=== PATIENT | female | born 1995 | race African-American/Black ===

== ENCOUNTER 2016-06-18 07:47 | Emergency (ER) | payer SELFPAY ==
[~2016-06-18] VITALS: Ht 160 cm; Wt 61.0 kg
[2016-06-18 07:48] VITALS: BP 142/65; PULSE 60; RESP 17; TEMP 98.2; O2SAT 98
--- NOTE | 2016-06-18 08:35 | PD ---
HPI Chief Complaint: Related Problem Time Seen by Provider: 08:02 Travel History International Travel<30 days: No Contact w/Intl Traveler<30days: No Traveled to known affect area: No History of Present Illness HPI Patient is a 21-year-old at approximately 4 weeks 4 days based on LMP of here with complaint of and vaginal bleeding. Patient states that her period was 5 days late, she took 6 home test all of which were positive. This morning she began to bleed vaginally, describes this as bright red blood. Notes pain in the lower abdomen and low back, moderate, cramping. Patient has had one previous first trimester miscarriage, is concerned as this feels similar. PFSH Past Medical History Medical History: Denies Significant Hx Immunizations Current: Yes ?: LMP: 05/17/16 : 2 Para: 1 Past Surgical History Surgical History: No Previous Surgery Social History Alcohol Use: No Tobacco Use: Yes Substance Use: Yes (marijuana) Allergies-Medications (Allergen,Severity, Reaction): Coded Allergies: Mushroom (Verified Allergy, Severe, HIVES, 03/30/15) PEANUTS (Verified Allergy, Severe, THROAT CLOSES, 03/30/15) Latex (Verified Adverse Reaction, Mild, RASH, 03/30/15) Reported Meds & Prescriptions Reported Meds & Active Scripts Active Active Prescriptions or Reported Medications Unobtainable Review of Systems Except as stated in HPI: all other systems reviewed are Neg Physical Exam Narrative GENERAL: Well-appearing female in no acute distress SKIN: Warm and dry. HEAD: Normocephalic. EYES: No scleral icterus. No injection or drainage. ENT: Mucous membranes pink and moist. NECK: Supple CARDIOVASCULAR: Regular rate and rhythm. RESPIRATORY: No accessory muscle use. GASTROINTESTINAL: Abdomen soft, non-tender, nondistended. MUSCULOSKELETAL: Normal gait NEUROLOGICAL: Awake and alert. Normal speech. PSYCHIATRIC: Appropriate mood and affect; insight and judgment normal. Data Data Last Documented VS Vital Signs Date Time Temp Pulse Resp B/P Pulse Ox O2 Delivery O2 Flow Rate FiO2 06/18/16 08:20 16 06/18/16 07:48 98.2 60 142/65 98 Orders Ed Urine Pregnancytest Poc (06/18/16 08:02) Ed Poc Ultrasound (06/18/16 ) Cath For Specimen (3/14/17 08:12) [facility] Medical Decision Making Medical Screen Exam Complete: Yes Emergency Medical Condition: Yes Medical Record Reviewed: Yes Differential Diagnosis 21-year-old at approximate 4 weeks 4 days gestational age here with complaint of vaginal bleeding and abdominal pain. Differential includes , ectopic , threatened AB, missed AB, inevitable AB, complete AB. Less likely UTI. Narrative Course Patient placed on monitor, bedside ultrasound performed, showing no evidence of IUP, please see procedure note. Urine test was negative. Given her multiple positive home test my suspicion is that patient has had a complete miscarriage. Patient was informed of same and discharged home. She is A+ and does not warrant program. Procedures Procedure Narrative Emergency Department Pelvic ultrasound was performed with patient consent. The curvilinear probe was used in the transverse and sagittal views within the suprapubic region revealing no evidence of intrauterine Diagnosis Primary Impression: Complete Referrals: Primary Care Physician as needed Additional Instructions: Tylenol, ibuprofen, Aleve as needed for pain. Follow-up with [facility] if bleeding persist and return to the ER for the warning signs discussed. Med/Other Pt SpecificInfo: No Change to Meds Scripts Unable to Obtain Active Prescriptions or Reported Meds Disposition: 01 DISCHARGE HOME Condition: Stable Terra Hernandez MD Jun 18, 2016 08:35
== END 2016-06-18 09:01 | disposition home or self-care (01) ==
LOC: NEPE 07:47
DX: O03.9 Complete or unspecified spontaneous abortion without complication (principal)
CPT/HCPCS: 84703; 99283; P9612

== ENCOUNTER 2017-01-11 14:49 | Emergency (ER) | payer SELFPAY ==
[~2017-01-11] VITALS: Ht 160 cm; Wt 62.0 kg
[2017-01-11 14:50] VITALS: BP 143/62; PULSE 73; RESP 16; TEMP 99; O2SAT 99
[2017-01-11] MEDS ORDERED: SODIUM CHLOR 0.9% 1000 ML INJ 1,000 ML IV SCH (16:16)
--- NOTE | 2017-01-11 16:20 | PD ---
HPI Chief Complaint: Musculoskeletal Complaint Time Seen by Provider: 16:10 Travel History International Travel<30 days: No Contact w/Intl Traveler<30days: No Traveled to known affect area: No History of Present Illness HPI This patient was examined in the presence of female nurse at all times. 22-year -old female presents for evaluation of right upper quadrant abdominal pain/ flank pain. Symptoms started yesterday at noon while she was drinking beer. She took a Vicodin and Lortab and then "went out drinking" and when she woke up this morning her pain is worse which prompted evaluation. The pain is a constant aching pain which is worse when lying down flat, no alleviating factors. She endorses some nausea. Denies vomiting, chest pain, shortness of breath, unusual vaginal discharge, dysuria, increased urinary frequency, hematuria. She reports that her last menstrual period completed yesterday. No other complaints at this time. PFSH Past Medical History Medical History: Denies Significant Hx Immunizations Current: Yes ?: Not LMP: 01/06/17 : 2 Para: 1 Past Surgical History Other Surgery: Yes () Social History Alcohol Use: Yes Tobacco Use: No Substance Use: Yes (marijuana) Allergies-Medications (Allergen,Severity, Reaction): Coded Allergies: mushroom (Unverified Allergy, Severe, HIVES, 11/19/16) peanut (Unverified Allergy, Severe, THROAT CLOSES, 11/19/16) latex (Unverified Adverse Reaction, Mild, RASH, 11/19/16) Reported Meds & Prescriptions Reported Meds & Active Scripts Active Zofran (Ondansetron HCl) 4 Mg Tab 4 Mg PO Q6HR PRN Bactrim DS (Sulfamethoxazole-Trimethoprim) 800-160 Mg Tab 1 Tab PO BID Review of Systems Except as stated in HPI: all other systems reviewed are Neg Physical Exam Narrative GENERAL: Well-nourished female in no acute distress SKIN: Warm and dry. HEAD: Atraumatic. Normocephalic. EYES: Pupils equal and round. No scleral icterus. No injection or drainage. ENT: No nasal bleeding or discharge. Mucous membranes pink and moist. NECK: Trachea midline. No JVD. CARDIOVASCULAR: Regular rate and rhythm. No murmur appreciated. RESPIRATORY: No accessory muscle use. Clear to auscultation. Breath sounds equal bilaterally. GASTROINTESTINAL: Abdomen soft, focal right upper quadrant/right CVA tenderness without guarding. MUSCULOSKELETAL: No obvious deformities. No edema. NEUROLOGICAL: Awake and alert. No obvious cranial nerve deficits. Motor grossly within normal limits. Normal speech. PSYCHIATRIC: Appropriate mood and affect; insight and judgment normal. Data Data Last Documented VS Vital Signs Date Time Temp Pulse Resp B/P (MAP) Pulse Ox O2 Delivery O2 Flow Rate FiO2 01/11/17 16:07 18 01/11/17 14:50 99.0 73 143/62 (89) 99 Orders Orders Complete Blood Count With Diff (01/11/17 16:16) Lipase (01/11/17 16:16) Urinalysis - C+S If Indicated (01/11/17 16:16) Us Abdomen Gallbladder (01/11/17 ) Ondansetron Inj (Zofran Inj) (01/11/17 16:30) Sodium Chlor 0.9% 1000 Ml Inj (Ns 1000 M (01/11/17 16:16) Chest, Single Ap (01/11/17 16:16) Morphine Inj (Morphine Inj) (01/11/17 16:30) Ed Urine Pregnancytest Poc (01/11/17 16:16) Comprehensive Metabolic Panel (01/11/17 16:16) Urine Culture (01/11/17 16:21) Sulfamet-Trimeth Ds 800-160 Mg (Bactrim (01/11/17 17:15) Labs Laboratory Tests Test 01/11/17 16:21 White Blood Count 9.1 TH/MM3 Red Blood Count 4.21 MIL/MM3 Hemoglobin 13.0 GM/DL Hematocrit 37.8 % Mean Corpuscular Volume 89.8 FL Mean Corpuscular Hemoglobin 30.9 PG Mean Corpuscular Hemoglobin Concent 34.4 % Red Cell Distribution Width 13.6 % Platelet Count 182 TH/MM3 Mean Platelet Volume 8.9 FL Neutrophils (%) (Auto) 65.1 % Lymphocytes (%) (Auto) 20.9 % Monocytes (%) (Auto) 12.1 % Eosinophils (%) (Auto) 1.5 % Basophils (%) (Auto) 0.4 % Neutrophils # (Auto) 5.9 TH/MM3 Lymphocytes # (Auto) 1.9 TH/MM3 Monocytes # (Auto) 1.1 TH/MM3 Eosinophils # (Auto) 0.1 TH/MM3 Basophils # (Auto) 0.0 TH/MM3 CBC Comment DIFF FINAL Differential Comment Urine Color YELLOW Urine Turbidity HAZY Urine pH 5.5 Urine Specific [place] 1.015 Urine Protein NEG mg/dL Urine Glucose (UA) NEG mg/dL Urine Ketones NEG mg/dL Urine Occult Blood NEG Urine Nitrite NEG Urine Bilirubin NEG Urine Urobilinogen LESS THAN 2.0 MG/DL Urine Leukocyte Esterase LARGE Urine RBC 2 /hpf Urine WBC 20 /hpf Urine Squamous Epithelial Cells 2 /hpf Urine Mucus FEW /lpf Microscopic Urinalysis Comment CULTURE INDICATED Blood Urea Nitrogen 10 MG/DL Creatinine 0.82 MG/DL Random Glucose 91 MG/DL Total Protein 7.9 GM/DL Albumin 3.9 GM/DL Calcium Level 8.4 MG/DL Alkaline Phosphatase 54 U/L Aspartate Amino Transf (AST/SGOT) 15 U/L Alanine Aminotransferase (ALT/SGPT) 16 U/L Total Bilirubin 0.4 MG/DL Sodium Level 139 MEQ/L Potassium Level 3.8 MEQ/L Chloride Level 106 MEQ/L Carbon Dioxide Level 26.1 MEQ/L Anion Gap 7 MEQ/L Estimat Glomerular Filtration Rate 106 ML/MIN Lipase 89 U/L [facility] Medical Decision Making Medical Screen Exam Complete: Yes Emergency Medical Condition: Yes Medical Record Reviewed: Yes Differential Diagnosis Biliary colic, cholecystitis, muscle spasm, renal colic, pyelonephritis Narrative Course Plan is for basic lab work, chest x-ray, right upper quadrant ultrasound. The patient will be given IV fluids, Zofran, morphine. The patient lab work is been reviewed. She has pyuria with no hematuria. Her ultrasound reveals no evidence of cholecystitis or gallstone. At this point in time the plan would be to treat the patient for mild pyelonephritis with Bactrim as an outpatient. She is stable for discharge. Diagnosis Primary Impression: Pyelonephritis Additional Instructions: Medication as prescribed. Stay well hydrated well-nourished. Follow-up with primary care as needed and return for any emergent medical conditions. Med/Other Pt SpecificInfo: Prescription(s) given Scripts Ondansetron (Zofran) 4 Mg Tab 4 MG PO Q6HR Y for NAUSEA OR VOMITING, #15 TAB 0 Refills Prov: Ricky Leslie MD 01/11/17 Sulfamethoxazole-Trimethoprim (Bactrim DS) 800-160 Mg Tab 1 TAB PO BID for Infection, #14 TAB 0 Refills Prov: Ricky Leslie MD 01/11/17 Disposition: 01 DISCHARGE HOME Condition: Stable Raheem Rmoano Jan 11, 2017 16:20
[2017-01-11] MEDS ORDERED: MORPHINE SULFATE 4 MG/ML INJ IV PUSH ONE (16:30)
[2017-01-11] MEDS ORDERED: ONDANSETRON HCL 4 MG/2 ML VIAL IVP ONE (16:30)
[2017-01-11 16:33] LABS: AUTOMATED NEUTROPHIL # 5.9 TH/MM3 (1.8-7.7); BASOPHIL % 0.4 % (0.0-2.0); EOSINOPHIL # 0.1 TH/MM3 (0-0.4); EOSINOPHIL % 1.5 % (0.0-4.0); HEMATOCRIT 37.8 % (35.0-46.0); HEMO FLAGS DIFF FINAL; LYMPH % 20.9 % (9.0-44.0); LYMPHOCYTE # 1.9 TH/MM3 (1.0-4.8); MEAN CELL VOLUME 89.8 FL (80.0-100.0); MEAN CORPUSCULAR HEMOGLOBIN 30.9 PG (27.0-34.0); MEAN CORPUSCULAR HGB CONC 34.4 % (32.0-36.0); MONO % 12.1 % (0.0-8.0); NEUT % 65.1 % (16.0-70.0); PLATELET COUNT 182 TH/MM3 (150-450); RED BLOOD COUNT 4.21 MIL/MM3 (4.00-5.30); RED CELL DISTRIBUTION WIDTH 13.6 % (11.6-17.2); WHITE BLOOD COUNT 9.1 TH/MM3 (4.0-11.0)
[2017-01-11 16:38] LABS: BLOOD, URINE NEG (NEG); COMMENT (UR) CULTURE INDICATED; CULTURE IF INDICATED CULTURE INDICATED; GLUCOSE,URINE NEG (NEG); KETONE, URINE NEG (NEG); MUCUS URINE FEW /lpf (OCC); NITRITE,URINE NEG (NEG); PH, URINE 5.5 (5.0-8.5); SQUAMOUS EPITHELIAL CELL URINE 2 /hpf (0-5); URINE COLOR YELLOW (YELLW/STRAW)
--- NOTE | 2017-01-11 16:42 | RADRPT ---
EXAM DATE/TIME: 01/11/2017 16:18 [facility] COMPARISON: No previous studies available for comparison. INDICATIONS : Chest pain and shortness of breath. MEDICAL HISTORY : None. SURGICAL HISTORY : None. ENCOUNTER: Initial ACUITY: 1 day PAIN SCORE: 9/10 LOCATION: Bilateral chest Right sided FINDINGS: A single view of the chest demonstrates the lungs to be symmetrically aerated without evidence of mas s, infiltrate or effusion. The cardiomediastinal contours are unremarkable. Osseous structures are intact. CONCLUSION: No acute disease. Sánchez Gonzáles MD on January 11, 2017 at 16:41 Board Certified Radiologist. This report was verified electronically.
[2017-01-11 16:50] LABS: ALT (GPT) 16 U/L (10-53); ANION GAP 7 MEQ/L (5-15); AST (GOT) 15 U/L (15-37); BICARBONATE 26.1 MEQ/L (21.0-32.0); BLOOD UREA NITROGEN 10 MG/DL (7-18); CHLORIDE 106 MEQ/L (98-107); GLOMERULAR FILTRATION RATE 106 ML/MIN (>89); POTASSIUM 3.8 MEQ/L (3.5-5.1); SODIUM (NA) 139 MEQ/L (136-145)
[2017-01-11 16:52] LABS: ALKALINE PHOSPHATASE 54 U/L (45-117); TOTAL BILIRUBIN ADULT 0.4 MG/DL (0.2-1.0)
--- NOTE | 2017-01-11 16:55 | RADRPT ---
EXAM DATE/TIME: 01/11/2017 16:20 [facility] COMPARISON: No previous studies available for comparison. INDICATIONS : Right upper quadrant pain. MEDICAL HISTORY : . Abdominal pain. Substance use. Alcohol use. SURGICAL HISTORY : . ENCOUNTER: Initial ACUITY: 1 day PAIN SCORE: 10/10 LOCATION: Right upper quadrant MEASUREMENTS: LIVER: 15.7 x x cm length COMMON DUCT: 3 mm RIGHT KIDNEY: 12.3 x 5.0 x 4.4 cm FINDINGS: LIVER: Normal echotexture without focal lesion or ductal dilatation. COMMON DUCT: No intraluminal mass or stone visualized. GALLBLADDER: Contains no stones, demonstrates no wall thickening or pericholecystic fluid. PANCREAS: The visualized portions are within normal limits. RIGHT KIDNEY: No evidence of mass or stone. There is slight prominence of the right intrarenal collecting system. CONCLUSION: 1. Slight prominence of the right intrarenal collecting system otherwise normal study. Sergei Doss MD on January 11, 2017 at 16:53 Board Certified Radiologist. This report was verified electronically.
[2017-01-11] MEDS ORDERED: BACT800T5 PO (17:07)
[2017-01-11] MEDS ORDERED: ZOFR4TAB PO (17:07)
[2017-01-11] MEDS ORDERED: SULFAMETHOXAZOLE-TRIMETHOPRIM DS 800-160 MG TAB PO ONE (17:15)
[2017-01-11 17:20] VITALS: BP 138/64
== END 2017-01-11 17:36 | disposition home or self-care (01) ==
LOC: NEPE 14:49
DX: N12 Tubulo-interstitial nephritis, not specified as acute or chronic (principal); B96.89 Other specified bacterial agents as the cause of diseases classified elsewhere
CPT/HCPCS: 71010; 76705; 80053; 81001; 83690; 84703; 85025; 87086; 96361; 96374; 96375; 99285; J2270; J2405; J7030